=== PATIENT | male | born 1945 | race African-American/Black ===

== ENCOUNTER 2018-04-18 08:50 | Outpatient (CLI) | payer MEDICARE, OTHER ==
--- NOTE | 2018-04-18 15:24 | NM ---
NUCLEAR MEDICINE BRAIN IMAGING: Date: 04/18/18 HISTORY: Parkinson's disease. TECHNIQUE: A DaTscan with axial tomographic images of the brain was obtained 3 hours following the intravenous a dministration of 4.7 mCi Iodine-123 Ioflupane. The patient was pretreated with 130 mg of potassium io dide orally 1 hour prior to the injection. FINDINGS: There is loss of symmetric uptake in the striata bilaterally. The normal crescent shape has been los t on either side. IMPRESSION: Findings are consistent with Parkinsonian syndrome. POS: OFF
== END 2018-04-18 08:51 | disposition home or self-care (01) ==
LOC: NM 08:50
PROVIDERS: ATTEND Psychiatry & Neurology Neurology
DX: G20 Parkinson's disease (principal)
CPT/HCPCS: 78607; A9584